=== PATIENT | female | born 1950 | race Caucasian/White ===

== ENCOUNTER → 2022-11-21 09:32 | Outpatient (CLI) | payer MEDICARE, SELFPAY ==
--- NOTE | ~2022-11-21 | MR_ITS ---
MRI of the left shoulder Technique: Axial proton-density fat-sat images, coronal proton density fat-sat and T2 fat-sat images, and sagittal T1-weighted and T2 fat-sat images were acquired. Clinical History: Pain Findings: There is [id number]-gz-[id number] AC joint degenerative change. Small subacromial spur noted. Corac oclavicular, coracoacromial, and coracohumeral ligaments appear intact. There are complete, full-thickness tears involving the entirety of the supraspinatus and infraspinatu s tendons, which are retracted to the level of the glenohumeral joint. Fluid-filled gap measures appr oximately 4.2 x 4.4 cm in extent. There is severe subscapularis tendinosis, without definite partial or full-thickness tear. There is severe tendinosis of the intra-articular biceps tendon, without evid ence of rupture. Humeral head is high riding. Inferior glenohumeral ligament is intact. There is mild chondromalacia o f the glenohumeral joint. There is small to moderate glenohumeral joint effusion with fluid passing t hrough the rotator cuff defect into the subacromial/subdeltoid bursa. There is fluid distention of th e subcoracoid bursa. Questionable minimal fatty atrophy of the supraspinatus and infraspinatus muscle bellies. Probable degenerative tearing of the posterior labrum. Impression: Complete, full-thickness tears of the supraspinatus and infraspinatus tendons, with large fluid-fille d gap and retraction, as detailed above. Questionable minimal fatty atrophy/infiltration of the supra spinatus and infraspinatus muscle bellies. High riding humeral head. Probable degenerative tearing of the posterior labrum. Severe tendinosis of the subscapularis tendon and intra-articular portion of the long head biceps ten don. Reviewed, dictated and finalized at location M. [facility] Impression: Complete, full-thickness tears of the supraspinatus and infraspinatus tendons, with large fluid-filled gap and retraction, as detailed above. Questionable min imal fatty atrophy/infiltration of the supraspinatus and infraspinatus muscle b deny. High riding humeral head. Probable degenerative tearing of the posterior labrum. Severe tendinosis of the subscapularis tendon and intra-articular portion of th e long head biceps tendon.
== END ==
PROVIDERS: PCP Internal Medicine; Visit Provider Orthopaedic Surgery
DX: S43.492A Other sprain of left shoulder joint, initial encounter (principal); X58.XXXA Exposure to other specified factors, initial encounter
CPT/HCPCS: 73221

== ENCOUNTER 2023-01-30 09:40 | Outpatient (CLI) | payer MEDICARE, SELFPAY ==
--- NOTE | 2023-01-30 10:27 | ECG_ITS ---
Measurements Intervals [place] Rate: 92 P: 30 WY: 188 QRS: -8 QRSD: 95 T: 1 QT: 357 QTc: 444 Interpretive Statements SINUS RHYTHM BORDERLINE AV CONDUCTION DELAY ANTERIOR INFARCT, AGE INDETERMINATE INFERIOR INFARCT, AGE INDETERMINATE ABNORMAL ECG COMPARED TO ECG 12/22/2018 13:39:25 NO SIGNIFICANT CHANGES Electronically Signed On 01-30-2023 10:50:54 CDT by Vance Jansen D.O.
[2023-01-30 11:01] LABS: Basophils Percent Auto 0.6 % (0.2-1.2); Eosinophils Absolute Auto 0.4 K/mm3 (0-0.3); Eosinophils Percent Auto 5.9 % (0-4.4); Hematocrit 41.2 % (37.0-47.0); Hemoglobin 14.2 g/dL (12.0-15.0); Immature Granulocyte Absolute 0.01 K/mm3 (0.00-0.031); Immature Granulocyte Percent A 0.2 % (0-0.5); Lymphocytes Absolute Auto 2.62 K/mm3 (0.9-3.2); Lymphocytes Percent Auto 40.9 % (18.3-44.2); Mean Corpuscular HGB Conc 34.5 g/dl (32-36); Mean Corpuscular Hemoglobin 35.2 pg (26-34); Mean Corpuscular Volume 102.2 fl (80-100); Mean Platelet Volume 9.5 fl (7.4-10.4); Monocytes Absolute Auto 0.4 K/mm3 (0.1-0.6); Monocytes Percent Auto 5.5 % (2.6-8.5); Neutrophils Percent Auto 46.9 % (45.5-73.1); Platelet Count Result 258 k/mm3 (150-375); Red Blood Count 4.03 M/mm3 (4.2-5.4); Red Cell Distribution Width 12.7 % (11.5-14.5); White Blood Count 6.4 K/mm3 (4.5-10.0)
[2023-01-30 11:09] LABS: Anion Gap 7 mmol/L (8-16); Blood Urea Nitrogen 19 mg/dL (7-17); Calcium 10.7 mg/dL (8.4-10.2); Carbon Dioxide 33 mmol/L (22-30); Chloride 99 mmol/L (98-107); Estimated Glomerular Filt Rate > 60; Glucose 177 mg/dL (65-110); Sodium 139 mmol/L (137-145)
== END 2023-01-30 09:41 | disposition home or self-care (01) ==
PROVIDERS: Anesthesiology; PCP Internal Medicine; Visit Provider Orthopaedic Surgery
DX: E11.9 Type 2 diabetes mellitus without complications (principal); M12.812 Other specific arthropathies, not elsewhere classified, left shoulder; M75.102 Unspecified rotator cuff tear or rupture of left shoulder, not specified as traumatic; Z51.81 Encounter for therapeutic drug level monitoring; I45.9 Conduction disorder, unspecified
CPT/HCPCS: 36415; 80048; 85025; 87081; 93005

== ENCOUNTER 2023-02-28 00:06 | Day surgery (SDC) | payer MEDICARE, SELFPAY ==
--- NOTE | 2023-01-30 09:32 | PC.NURSE ---
PRE-OP INSTRUCTIONS, PLEASE READ CAREFULLY Report to the Outpatient Waiting Room, entrance under the green pavilion located off [facility], at time _0600_ on date _02/28/23_. Planned Procedure Time: _0730_. PACK A SMALL OVERNIGHT BAG AND LEAVE IN THE CAR Time changes happen often and if your time is changed the preop area will call you the afternoon before. - You and your visitor will be asked to self-screen and do not enter if you have any COVID symptoms. - A mask is optional within the hospital at this time. -VISITING HOURS 8AM-8PM Patients may have clear liquids (water, carbonated beverages, clear teas, apple juice) until 3 hours prior to surgery (0430 AM) with a maximum of 20 ounces. - No food from midnight until time of surgery Take the following medications with a SIP of water the morning of surgery: _LEVOTHYROXINE, PRAMIPEXOLE, VENLAFAXINE_ DO NOT STOP ANY OF YOUR OTHER PRESCRIPTION MEDICATIONS PRIOR TO SURGERY ?EXCEPT THE FOLLOWING Medications to discontinue per DR. JAMA - _ASPIRIN 7 DAYS PRIOR TO SURGERY, Date to take last dose 02/20/23_ Medications to discontinue per ANESTHESIA - _FOCUS FACTOR, BIO-FLEX 3 DAYS PRIOR TO SURGERY, Date to take last dose 02/24/23_ Please no make-up, nail yi, hairspray, perfume, deodorant, or body powder the day of surgery. No jewelry (including any body piercings) or valuables the day of surgery, leave them at home. Please take a shower or bath the night before, or the morning of, surgery with an antibacterial soap. Wear comfortable, loose fitting clothing. - Jewelry must be removed prior to entering the operating room. Rings and piercings that are not removed may be cut off. - The hospital will not accept responsibility for valuables. - Please leave all valuables, including medications, at home the day of surgery. If you are going home after surgery, a licensed shuttle driver must drive you home. - NO public transportation without another adult if you receive anesthesia. - We recommend that an adult stay with you for 24 hours following discharge. - We also recommend that you do not drive, make important decision, drink alcoholic beverages, or take any drugs that were not prescribed by your health care provider for at least 24 hours after your discharge time. Follow any additional instructions given to you from your surgeon. If you or anyone in your household have experienced Covid symptoms in the past week, please notify your surgeon or the nurse liaison at the phone number below for possible testing. Instructions given to _PATIENT_and asked if any additional questions and then verbalized understanding. Patient advised to call surgeon office or pre surgery nurse liaison [phone] if any additional questions.
[2023-01-30 10:07] VITALS: BP 130/66; PULSE 96; RESP 18; TEMP 36.9; O2SAT 96; BMI 38.9
--- NOTE | 2023-02-27 12:50 | WPDANESEPPF ---
Anes - Initial Pre Proc Eval Procedure: Operation Date: 02/28/23 07:30 Proposed Procedures p Left Reverse Total Shoulder Arthroplasty - Cody Dhillon MD Date/Time: 02/27/23 12:50 Surgeon: Cody Dhillon MD Pre Op Diagnosis: Lt Shoulder Rot Cuff Arthropathy Patient Data Age: 72 Gender: F Height: 1.5 m Weight: 87.4 kg Last Vital Signs Temp 36.9 C 01/30/23 10:07 Pulse 96 01/30/23 10:07 Resp 18 01/30/23 10:07 BP 130/66 01/30/23 10:07 Pulse Ox 96 01/30/23 10:07 O2 Del Method Room Air 01/30/23 10:07 Allergies Allergy/AdvReac Type Severity Reaction Status Date / Time erythromycin base Allergy Intermediate RASH Verified 02/28/23 06:10 Macrolide Antibiotics Allergy Intermediate RASH Verified 02/28/23 06:10 clarithromycin Allergy Unknown Hives Verified 02/28/23 06:10 Home Medications Medication Instructions Recorded Confirmed Type allopurinol 300 mg tablet 300 mg PO DAILY 10/22/19 02/28/23 History aspirin 81 mg tablet,delayed 81 mg PO HS 10/22/19 02/28/23 History release atorvastatin 10 mg tablet 10 mg PO DAILY 10/22/19 02/28/23 History celecoxib 200 mg capsule (Celebrex) 200 mg PO DAILY 10/22/19 02/28/23 History ergocalciferol (vitamin D2) 1,250 1,250 mcg PO WEEKLY 10/22/19 02/28/23 History mcg (50,000 unit) capsule (Vitamin D2) esomeprazole magnesium 40 mg 40 mg PO DAILY 10/22/19 02/28/23 History capsule,delayed release (Nexium) mirabegron 25 mg tablet,extended 25 mg PO HS 10/22/19 02/28/23 History release 24 hr (Myrbetriq) pramipexole 1.5 mg tablet (Mirapex) 1.5 mg PO BID 10/22/19 02/28/23 History valacyclovir 500 mg tablet 500 mg PO DAILY 10/22/19 02/28/23 History venlafaxine 150 mg 150 mg PO DAILY 10/22/19 02/28/23 History capsule,extended release 24 hr glipizide 5 mg tablet 5 mg PO DAILY 10/13/22 06/08/23 History metformin 1,000 mg tablet,extended 1,000 mg PO BID 07/05/22 02/28/23 History release 24hr modafinil 200 mg tablet 400 mg PO HS 12/03/22 02/28/23 History Focus Factor 1 tab-cap QA 01/30/23 02/28/23 History furosemide 40 mg tablet 40 mg QAM 01/30/23 02/28/23 History glucosamine-chondroitin 250 mg-200 2 tablet PO BID 01/30/23 02/28/23 History mg tablet (Osteo Bi-Flex) levothyroxine 88 mcg tablet 88 mcg QAM 01/30/23 02/28/23 History magnesium 200 mg tablet 400 mg PO HS 01/30/23 02/28/23 History metoprolol succinate 25 mg 25 mg PO HS 01/30/23 02/28/23 History tablet,extended release 24 hr spironolactone 25 mg tablet 25 mg BID 01/30/23 02/28/23 History mupirocin 2 % topical ointment 1 applic topical TID #15 grams 02/04/23 02/28/23 Rx Patient hx anesthesia problems: none Family hx anesthesia problems: none Results Review: All pre-operative results and documents have been reviewed as part of the pre-operative evaluation. [facility] Past Medical History Medical History (Updated 02/28/23 @ 07:07 by Bobby Ortiz MD) Anxiety Diabetes Hyperlipidemia Hypertension Hypothyroidism Obesity MAGEN (obstructive sleep apnea) Osteoarthritis Paroxysmal A-fib Surgical History Surgical History History of cholecystectomy (~2007) History of hysterectomy (~1995) History of knee surgery (~2009) History of knee surgery (~2013) History of reverse total replacement of right shoulder joint (~01/13/19) History of tubal ligation (~1987) Family History Family History Mother Diabetes mellitus Family history of malignant neoplasm Father Family history of congenital heart disease Social History Social History Smoking status: Never smoker Second hand tobacco smoke exposure: No Alcohol intake: never Substance use: never Substance use type: does not use Lack of Transportation: No Lack of Food: Never True Current Housing: I Have Housing Concerned About Future
--- NOTE | 2023-02-27 12:55 | WPDANESPNB ---
Anes - Peripheral Nerve Block Date/Time: 02/27/23 12:55 I have discussed with the patient/family/POA the placement of a peripheral nerve block for post-operative pain management, including associated risks, benefits, complications, and side effects. Alternative methods of post-operative analgesia were detailed. Questions were solicited and answers provided to the satisfaction of the patient/family/POA. Time-Out: A pre-procedural Time-Out was completed immediately before starting the procedure and confirmed: Patient Identification, Site, Procedure, Patient Position and the Availability of Requisite Equipment. Clinical Indications: Acute post-operative pain management requested by the operative surgeon. Nerve Block Insertion Note Anes-nerve block: supraclavicular left Patient position: supine Skin prep: chlorhexidine Needle: 22 gauge, stimulating, insulated echogenic needle. Needle length: 80 mm Technique: ultrasound (in plane) Injectate: bupivacaine 0.25% with epi 5 mcg/ml (20cc) Observations: tolerated well Complications: none Procedure start time:: 720 Procedure end time:: 725
[2023-02-28] VITALS (16 sets, daily range): BP systolic 95–154; BP diastolic 53–83; PULSE 70–92; RESP 14–20; TEMP 35.5–36.7; O2SAT 93–98
--- NOTE | ~2023-02-28 | XR_ITS ---
EXAMINATION: XR shoulder LT min 2V DATE: 02/28/2023 10:43 INDICATION: Left shoulder arthroplasty. Postop. TECHNIQUE: 2 views of left shoulder were obtained. COMPARISON: Left shoulder radiographs 09/03/2022 FINDINGS: There is a reverse [id number] total left shoulder arthroplasty in near-anatomic alignm ent. No fracture. There is mild osteoarthritis of acromioclavicular joint. A surgical drain overlies left shoulder. There are airspace opacities in left mid and lower lung zones. IMPRESSION: 1. Total left shoulder arthroplasty in near-anatomic alignment. 2. Airspace opacities in left mid and lower lung zones, consistent with atelectasis versus pneumonia. Reviewed, dictated and finalized at location A. IMPRESSION: 1. Total left shoulder arthroplasty in near-anatomic alignment. 2. Airspace opacities in left mid and lower lung zones, consistent with atelect asis versus pneumonia.
[2023-02-28] MEDS: LACTATED RINGERS 1,000 ML 30 ML IV CONT ×2 (06:19→10:18)
[2023-02-28 06:34] LABS: Glucose Point of Care 154 mg/dl (65-105)
[2023-02-28] MEDS: TRANEXAMIC ACID 1,000MG/ISO100 1,000 MG/100 ML BAG 200 MG IVPB (07:01)
[2023-02-28] MEDS: ACETAMINOPHEN 500 MG TABLET 1000 MG PO (07:01)
--- NOTE | 2023-02-28 07:11 | WPDHPUPDATE1 ---
History and Physical Update Update Date/Time: 02/28/23 07:11 History and Physical has been reviewed, including an updated exam of the patient. There are NO changes in the patient's condition. Risks, benefits, and alternatives have been discussed and questions answered. Patient agrees to proceed with procedure.
[2023-02-28] MEDS: ceFAZolin 2 GM/D5W 50 ML 2 GM/50 ML BAG IVPB (07:59)
[2023-02-28] MEDS: VANCOMYCIN HCL 1,000 MG VIAL 1000 MG TOPICAL (09:25)
--- NOTE | 2023-02-28 10:13 | W.PM.PROC2 ---
Procedure Note - Detailed Date of Procedure 02/28/23 Pre-op Diagnosis Lt Shoulder Rot Cuff Arthropathy Post-op Diagnosis Same Procedure Performed Reverse total shoulder arthroplasty, left Surgeon Cody Dhillon MD Anesthesia General and Regional (Interscalene block.) Findings Massive rotator cuff tear. Small stature. No glenoid wear. Description of Procedure The patient was given an interscalene block in the preoperative area. Preoperative antibiotics were given. The patient was transferred to the operating room and a general anesthetic was administered. The beach chair position was used at 45 degrees. All bony prominences were padded. The head was carefully stabilized on the [facility] apple packing header. A sterile prep and drape was performed in the usual manner with ChloraPrep. A longitudinal incision was created at the anterior shoulder just lateral to the deltopectoral interval. Hydrogen peroxide was placed on the incision and then rinsed after one minute. Careful dissection was performed to expose the interval and protect the cephalic vein. The vein was retracted medially. The upper border of the pectoralis was released. Anterior circumflex vessel branches were suture ligated. The biceps was tenodesed. A subscapularis tenotomy was performed. The inferior capsule was released, exposing the humeral head. Osteophytes were removed. Care was taken to stay on bone to protect the axillary nerve. The anatomic head cut was taken with the oscillating saw. The guide pin was placed, central drilling performed, and the broach trial inserted. The neck anteversion and inclination were carefully assessed. The cut protector was placed, and attention was turned to the glenoid. Retractors were placed. Releases were carried out for exposure. The subscapularis was mobilized, the inferior capsule and long head of triceps released, and the superior and middle glenohumeral ligaments released as well. Labral tissue was resected as needed. The sizing template was used to assess the baseplate position low on the glenoid. A guide pin was placed. Minimal reaming was used to accomplish a flat surface without violating the subchondral bone. Version was corrected according to preoperative templating. The boss was drilled, and the real component was impacted into position. Supplemental locking screws were placed centrally, superiorly, and inferiorly. The glenosphere was impacted into the taper. The proximal humerus was reamed for the inset component. The humeral components were trialed. The real humeral stem, tray, and insert were impacted into position. The shoulder was copiously irrigated periodically with pulsatile lavage. The shoulder was reduced and stability confirmed. The subscapularis did not reduce to the tuberosity. 1 gram of Vancomycin powder was placed in the joint. The biceps tenodesis was incorporated with the pectoralis tendon repair. A deep drain was placed. The deltopectoral space was reapproximated with number 1 Vicryl. The remaining tissue was closed with 0 Quill and 2-0 Quill running suture and steri-strips. A sterile silver occlusive dressing and shoulder immobilizer were placed. The patient was transferred to the recovery room. Periarticular pain injection performed. Implants Shoulder Innovations reverse TSA size 0 stem. +0 polyethylene insert. Standard 10mm baseplate. 33+6 mm glenosphere. Estimated Blood Loss 150 Drains Yes (medium hemovac) Pathology None sent Complications No immediate complications Condition Stable Disposition PACU [facility] Billing Surgery - Charge Forward: Surgery Billing
--- NOTE | 2023-02-28 10:20 | PM.DS ---
DS: Admitting Diagnosis Discharge Date 03/01/2023 Admitting Diagnosis rotator cuff arthropathy, left shoulder. DS: Discharge Diagnosis Discharge Diagnosis (1) Status post reverse total arthroplasty of left shoulder: Code(s): Z96.612 - Presence of left artificial shoulder joint Status: Acute (2) Orthopedic aftercare: Code(s): Z47.89 - Encounter for other orthopedic aftercare Status: Acute DS: Summary Hospital Course Reason for hospitalization: Total shoulder arthroplasty. Hospital Course: Tolerated surgery well. Progressed appropriately with therapy. Status at Discharge Functional status at discharge: independent ambulation Overall status at discharge: patient is progressing back to baseline Time Spent with Patient Time attestation: Total time spent providing and/or coordinating discharge services: Exam Const: General: no acute distress Resp: Effort & Inspection: normal respiratory effort Skin: Other: Wound healing well. Mepilex dressing intact. No hematoma or drainage. Sling applied appropriately. Deltoid muscle fires. Axillary nerve sensation intact. Good freight broker agent strength. No edema. radial pulse palpable. Neuro: Motor exam (neuro): 5/5 motor strength present throughout Sensory Exam: normal sensation Psych: Mental Status: mental status grossly normal Speech and movement: Normal speech and movement present DS: Data Data Completed and Pending Labs on day of discharge: Labs from last 24 hours 02/28/23 02/28/23 06:30 06:29 POC Capillary Glucose 154 H Blood Type A Negative Antibody Screen Negative Discharge Plan Discharge Patient Disposition: Home, Self-Care Discharge Instructions: See instruction sheet. Stand Alone Forms: General Discharge Instructions Follow-up/Referrals: Cody Dhillon MD [Physician] - Discharge Medications: New oxycodone-acetaminophen 5-325 mg tablet 1 - 2 tablet PO Q4-6H MDD 6 tablets PRN (Reason: pain) Qty: 30 0RF Continued allopurinol 300 mg tablet 300 mg PO DAILY aspirin 81 mg tablet,delayed release (DR/EC) 81 mg PO HS atorvastatin 10 mg tablet 10 mg PO DAILY celecoxib [Celebrex] 200 mg capsule 200 mg PO DAILY Patient Comments: HS pramipexole [Mirapex] 1.5 mg tablet 1.5 mg PO BID Myrbetriq 25 mg tablet extended release 24 hr 25 mg PO HS esomeprazole magnesium [Nexium] 40 mg capsule,delayed release(DR/EC) 40 mg PO DAILY valacyclovir 500 mg tablet 500 mg PO DAILY venlafaxine 150 mg capsule,extended release 24hr 150 mg PO DAILY ergocalciferol (vitamin D2) [Vitamin D2] 1,250 mcg (50,000 unit) capsule 1,250 mcg PO WEEKLY Rx Instructions: ON SATURDAY PM metformin 1,000 mg tablet extended release 24 hr 1,000 mg PO BID glipizide 5 mg tablet 5 mg PO DAILY modafinil 200 mg tablet 400 mg PO DAILY Rx Instructions: 0800, 1430 furosemide 40 mg tablet 40 mg QAM spironolactone 25 mg tablet 25 mg BID Rx Instructions: AM &1400 levothyroxine 88 mcg tablet 88 mcg QAM metoprolol succinate 25 mg tablet extended release 24 hr 25 mg PO HS magnesium 200 mg Tablet 400 mg PO HS glucosamine-chondroitin [Osteo Bi-Flex] 250-200 mg Tablet 2 tablet PO BID Rx Instructions: give after food/meal Focus Factor 1 tab-cap QAM
[2023-02-28 10:27] LABS: Glucose Point of Care 157 mg/dl (65-105)
--- NOTE | 2023-02-28 12:09 | ADMGEN ---
This patient, Joellen Colmenares, was admitted to [facility] Surg Room 326-01. Patient/family oriented to hospital policies and general routines including ID bracelet, bed and alarms, visiting hours, pain management, procedures, bathroom and other care routines, personal items, smoking policy, room service/diet, and visiting hours. Information on how to activate the Rapid Response Team has been discussed. Patient/Family are encouraged to report perceived risks to care and to ask questions if they do not understand what they are told or what they should do.
[2023-02-28] MEDS: SODIUM CHLORIDE 0.9% IV 1,000 ML 125 ML IV CONT (12:29)
[2023-02-28 12:30] LABS: Glucose Point of Care 167 mg/dl (65-105)
--- NOTE | 2023-02-28 13:15 | PM.IMCN ---
Assessment and Plan Assessment and plan (1) Status post reverse total arthroplasty of left shoulder: Code(s): Z96.612 - Presence of left artificial shoulder joint Status: Acute Assessment and Plan: Postop care per Ortho DVT prophylaxis per Ortho. The patient has SPARKLE hose on. PT OT per orthopedic doctor analgesics per orthopedic doctor, she is on oxycodone and Tylenol her Celebrex was continued. Left shoulder drain is intact. (2) Diabetes: Code(s): E11.9 - Type 2 diabetes mellitus without complications Status: Acute Assessment and Plan: Accu-Cheks AC and HS with sliding scale insulin check A1c. Her glipizide was continue and her metformin was continued per Orthopedic. (3) Restless legs syndrome: Code(s): G25.81 - Restless legs syndrome Status: Acute Assessment and Plan: continue with Pramipexole (4) Gout: Code(s): M10.9 - Gout, unspecified Status: Acute Assessment and Plan: continue with allopurinol (5) Anxiety: Code(s): F41.9 - Anxiety disorder, unspecified Status: Acute Assessment and Plan: continue with venlafaxine (6) Hypothyroidism: Code(s): E03.9 - Hypothyroidism, unspecified Status: Acute Assessment and Plan: continue with levothyroxine and check thyroid level (7) MAGEN (obstructive sleep apnea): Code(s): G47.33 - Obstructive sleep apnea (adult) (pediatric) Status: Acute Assessment and Plan: continue with her home settings for CPAP (8) Hyperlipidemia: Code(s): E78.5 - Hyperlipidemia, unspecified Status: Acute Assessment and Plan: continue with atorvastatin (9) Hypertension: Code(s): I10 - Essential (primary) hypertension Status: Acute Assessment and Plan: continue with Lasix, metoprolol, spironolactone Plan thank you for allowing us to consult on this patient we will continue to comanage this patient alongside you. In the event he have any questions or concerns please contact the hospitalist group. HPI Data of Consult Consult date: 02/28/23 Requesting Physician: Cody Dhillon MD Primary Care Provider: Wilmar Flores, Consult Narrative Narrative: Joellen Colmenares is a 72 year old female WHO HAD A SEVERE FLARE-UP OF LEFT SHOULDER PAIN. THE PATIENT WAS PUTTING UP HER KJ TREE REACHING WHEN SHE FELT A SHARP PAIN. THIS PAIN BECAME MORE CONSTANT. PATIENT'S PAIN WAS SEVERE AT NIGHT. THE PATIENT TRIED INJECTIONS SEVERAL MONTHS AGO. THE PATIENT CONTINUED TO HAVE PAIN ON AND OFF FOR SEVERAL MONTHS. SHE WAS HAVING DIFFICULTY CARING THINGS AND SHE WAS UNABLE TO LAY ON HER LEFT SIDE AT NIGHT. SHE DOES HAVE A HISTORY OF HAVING A RIGHT REVERSE TOTAL SHOULDER IN 2019 WAS SATISFACTORY RESULTS. Her MRI showed massive rotator cuff tear. She has some degenerative changes that are mild. The patient was having persistent pain daily with activity and at night despite physical therapy and injections. The patient underwent a left total reverse shoulder arthroplasty per Dr. Dhillon. Please see operative report. The patient is up sitting in the chair without any complaints. Her left arm is in a sling and she is moving her fingers without difficulty. The patient was admitted to the hospital via orthopedic physician and the hospitalist group was asked to consult on the date of service of 02/28/2023. Review of Systems Review of Systems: All systems reviewed & are unremarkable except as noted in HPI and below Constitutional: Constitutional: Reports as per HPI and Reports no additional constitutional complaints Eyes: Eyes: Reports as per HPI and Reports no additional eye complaints ENT: Reports system reviewed and no additional complaints, except as documented and Reports Normal hearing present Cardiovascular: Cardiovascular: Reports no additional cardiovascular complaints Respiratory: Respirato
[2023-02-28] MEDS: metFORMIN HCL XR 500 MG TAB.SR.24H 1000 MG PO (16:33)
[2023-02-28] MEDS: PRAMIPEXOLE 0.5 MG TABLET 1.5 MG PO (16:34)
[2023-02-28] MEDS: SENNA/DOCUSATE SODIUM TABLET 2 TAB PO (16:34)
[2023-02-28] MEDS: SPIRONOLACTONE 25 MG TABLET BY MOUTH (16:35)
[2023-02-28] MEDS: ceFAZolin 1 GM/NS 50 ML 1 GM/50 ML BAG IVPB (16:35)
[2023-02-28 16:55] LABS: Glucose Point of Care 160 mg/dl (65-105)
[2023-02-28] MEDS: oxyCODONE HCL (*CRX) 5 MG TAB IR PO (18:50)
[2023-02-28] MEDS: METOPROLOL SUCCINATE EXT REL 25 MG TABCR PO (20:29)
[2023-02-28] MEDS: ASPIRIN 81 MG ENTERIC TABLET PO (20:29)
[2023-02-28] MEDS: MAGNESIUM OXIDE 400 MG TABLET PO (20:29)
[2023-02-28] MEDS: ERGOCALCIFEROL 50,000 UNITS CAPSULE 50000 UNITS PO (20:29)
[2023-02-28] MEDS: MIRABEGRON 25 MG ER TABLET PO (20:29)
[2023-02-28 21:18] LABS: Glucose Point of Care 171 mg/dl (65-105)
[2023-03-01] MEDS: ceFAZolin 1 GM/NS 50 ML 1 GM/50 ML BAG IVPB ×2 (00:17→08:19)
[2023-03-01] MEDS: oxyCODONE HCL (*CRX) 5 MG TAB IR 10 MG PO ×2 (00:26→08:21)
[2023-03-01 05:35] VITALS: BP 141/92; PULSE 109; RESP 18; TEMP 35.7; O2SAT 92
[2023-03-01] MEDS: LEVOTHYROXINE SODIUM 88 MCG TABLET BY MOUTH (05:41)
[2023-03-01] MEDS: oxyCODONE HCL (*CRX) 5 MG TAB IR PO ×2 (05:41→11:05)
[2023-03-01 06:15] LABS: Basophils Absolute Auto 0.1 K/mm3 (0.0-0.1); Basophils Percent Auto 0.5 % (0.2-1.2); Eosinophils Absolute Auto 0.4 K/mm3 (0-0.3); Eosinophils Percent Auto 3.7 % (0-4.4); Hematocrit 44.5 % (37.0-47.0); Hemoglobin 15.1 g/dL (12.0-15.0); Immature Granulocyte Absolute 0.04 K/mm3 (0.00-0.031); Immature Granulocyte Percent A 0.4 % (0-0.5); Lymphocytes Absolute Auto 2.26 K/mm3 (0.9-3.2); Lymphocytes Percent Auto 20.1 % (18.3-44.2); Mean Corpuscular HGB Conc 33.9 g/dl (32-36); Mean Corpuscular Hemoglobin 35.6 pg (26-34); Mean Platelet Volume 9.5 fl (7.4-10.4); Monocytes Absolute Auto 0.8 K/mm3 (0.1-0.6); Monocytes Percent Auto 7.2 % (2.6-8.5); Neutrophils Absolute Auto 7.6 K/mm3 (1.3-6.7); Neutrophils Percent Auto 68.1 % (45.5-73.1); Platelet Count Result 252 k/mm3 (150-375); Red Blood Count 4.24 M/mm3 (4.2-5.4); Red Cell Distribution Width 13.3 % (11.5-14.5); White Blood Count 11.2 K/mm3 (4.5-10.0)
[2023-03-01 06:27] LABS: Anion Gap 5 mmol/L (8-16); Blood Urea Nitrogen 14 mg/dL (7-17); Calcium 10.2 mg/dL (8.4-10.2); Carbon Dioxide 28 mmol/L (22-30); Chloride 101 mmol/L (98-107); Estimated Glomerular Filt Rate > 60; Glucose 195 mg/dL (65-110); Potassium 4.5 mmol/L (3.4-5.0); Sodium 134 mmol/L (137-145)
[2023-03-01 07:25] LABS: Glucose Point of Care 190 mg/dl (65-105)
[2023-03-01] MEDS: allopurinoL 300 MG TABLET PO (08:19)
[2023-03-01] MEDS: PRAMIPEXOLE 0.5 MG TABLET 1.5 MG PO (08:21)
[2023-03-01] MEDS: polyethylene glycoL 3350 17 GM POWD.PACK PO (08:21)
[2023-03-01] MEDS: MUPIROCIN 2% OINT 22 GM TUBE 1 APPLIC TOPICAL (08:21)
[2023-03-01] MEDS: metFORMIN HCL XR 500 MG TAB.SR.24H 1000 MG PO (08:21)
[2023-03-01] MEDS: glipiZIDE 5 MG TABLET PO (08:21)
[2023-03-01] MEDS: FUROSEMIDE 40 MG TABLET BY MOUTH (08:22)
[2023-03-01] MEDS: valACYclovir HCL 500 MG TABLET PO (08:22)
[2023-03-01] MEDS: ATORVASTATIN 10 MG TABLET PO (08:22)
[2023-03-01] MEDS: CELECOXIB 200 MG CAPSULE PO (08:22)
[2023-03-01] MEDS: SENNA/DOCUSATE SODIUM TABLET 2 TAB PO (08:22)
[2023-03-01] MEDS: SPIRONOLACTONE 25 MG TABLET BY MOUTH (08:22)
[2023-03-01] MEDS: VENLAFAXINE HCL XR 75 MG CAP.ER.24H 150 MG PO (08:22)
[2023-03-01] MEDS: PANTOPRAZOLE 40 MG TABLET PO (08:23)
[2023-03-01 09:20] VITALS: O2SAT 92
[2023-03-01 09:35] VITALS: BP 119/74; PULSE 117; RESP 18; TEMP 36.6; O2SAT 94
--- NOTE | 2023-03-01 09:36 | WPDANESPN ---
Anes - Prog Note Post-Op Date/Time: 03/01/23 09:36 Cardiovascular status: normal Respiratory status: normal Airway patency: baseline Mental status: baseline Post-Op hydration status: normal Vital Signs: Last Vital Signs Temp 35.7 C L 03/01/23 05:35 Pulse 109 H 03/01/23 05:35 Resp 18 03/01/23 05:35 BP 141/92 H 03/01/23 05:35 Pulse Ox 92 03/01/23 09:20 O2 Del Method Room Air 03/01/23 09:20 O2 Flow Rate 2 02/28/23 11:40 Pain Score (VAS): 0 I/O: Intake & Output 02/28/23 03/01/23 03/01/23 23:59 07:59 15:59 Intake Total 790 1150 240 Output Total 75 Balance 790 1075 240 Laboratory Tests 03/01/23 05:34 03/01/23 05:34 02/28/23 02/28/23 02/28/23 10:23 12:14 16:35 WBC RBC Hgb Hct MCV MCH MCHC RDW Plt Count MPV Immature Gran % (Auto) Neut % (Auto) Lymph % (Auto) [place] % (Auto) Eos % (Auto) Baso % (Auto) Lymph # (Auto) [place] # (Auto) Eos # (Auto) Baso # (Auto) Abs Immat Gran (auto) Absolute Neuts (auto) Absolute Nucleated RBC Nucleated RBC % Sodium Potassium Chloride Carbon Dioxide Anion Gap BUN Creatinine Estim Creat Clear Calc Estimated GFR Glucose POC Capillary Glucose 157 H 167 H 160 H Hemoglobin A1c Calcium 02/28/23 03/01/23 03/01/23 20:11 05:34 07:22 WBC 11.2 H RBC 4.24 Hgb 15.1 H Hct 44.5 MCV 105.0 H MCH 35.6 H MCHC 33.9 RDW 13.3 Plt Count 252 MPV 9.5 Immature Gran % (Auto) 0.4 Neut % (Auto) 68.1 Lymph % (Auto) 20.1 [place] % (Auto) 7.2 Eos % (Auto) 3.7 Baso % (Auto) 0.5 Lymph # (Auto) 2.26 [place] # (Auto) 0.8 H Eos # (Auto) 0.4 H Baso # (Auto) 0.1 Abs Immat Gran (auto) 0.04 H Absolute Neuts (auto) 7.6 H Absolute Nucleated RBC 0.0 Nucleated RBC % 0.0 Sodium 134 L Potassium 4.5 Chloride 101 Carbon Dioxide 28 Anion Gap 5 L BUN 14 D Creatinine 0.70 Estim Creat Clear Calc Not Reportable Estimated GFR > 60 Glucose 195 H POC Capillary Glucose 171 H 190 H Hemoglobin A1c 7.0 H Calcium 10.2 Post-procedural complaints: none Patient Feedback: Patient satisfied with anesthetic care.
[2023-03-01 11:33] LABS: Glucose Point of Care 232 mg/dl (65-105)
[2023-03-01] MEDS: modafiniL (*CRX) 200 MG TABLET 400 MG PO (13:13)
[2023-03-01] MEDS: INSULIN ASPART (*BKC) 100 UNITS/ML SUB-Q (13:16)
[2023-03-01 13:35] VITALS: BP 141/79; PULSE 106; RESP 18; TEMP 36.4; O2SAT 95
--- NOTE | 2023-03-01 13:58 | PM.IMPN ---
Progress Note: A&P Assessment and Plan (1) Status post reverse total arthroplasty of left shoulder: Code(s): Z96.612 - Presence of left artificial shoulder joint Status: Acute Assessment and Plan: Patient appears to have tolerated the procedure quite well. Pain is well controlled. She is up ambulating as expected. Continue routine postoperative care. DVT prophylaxis per Ortho. The patient has ARCHEI hose on. Continue current analgesics. (2) Diabetes: Code(s): E11.9 - Type 2 diabetes mellitus without complications Status: Acute Assessment and Plan: A1c 7.0. The patient's blood glucose was reviewed on 03/01 Glucose poorly controlled. Metformin and Glipizide resumed. Probably stress response. Continue AccuCheks covering with sliding scale. Hypoglycemia protocol available as needed. Continue current medications. Advance treatment if she remains hospitalized today. (3) Restless legs syndrome: Code(s): G25.81 - Restless legs syndrome Status: Acute Assessment and Plan: Stable. Continue Pramipexole (4) Hypertension: Code(s): I10 - Essential (primary) hypertension Status: Acute Assessment and Plan: Patient's blood pressure was reviewed on 03/01 Blood pressure was low yesterday but better today. Will continue current medications. (5) Anxiety: Code(s): F41.9 - Anxiety disorder, unspecified Status: Acute Assessment and Plan: Mood stable. Continue venlafaxine (6) MAGEN (obstructive sleep apnea): Code(s): G47.33 - Obstructive sleep apnea (adult) (pediatric) Status: Acute Assessment and Plan: She is compliant with therapy. Continue with her home settings for CPAP (7) Hyperlipidemia: Code(s): E78.5 - Hyperlipidemia, unspecified Status: Acute Assessment and Plan: continue with atorvastatin (8) Hypothyroidism: Code(s): E03.9 - Hypothyroidism, unspecified Status: Acute Assessment and Plan: No TSH listed in the chart. Will defer to the primary care provider. Continue levothyroxine. (9) Gout: Code(s): M10.9 - Gout, unspecified Status: Acute Assessment and Plan: No evidence of acute gouty flare. Continue with allopurinol Subjective Date/time seen: 03/01/23 13:58 Interval history: 72yo female with pAFib, HTN and MAGEN here for post-op observation from a reverse left total shoulder arthroplasty. Patient feels well. Pain is reasonably well controlled at 3/10. She has been out of bed sitting in the chair and walking with therapy down the [place]. No chest pain or shortness of breath. She is requesting discharge. Exam Narrative: AF 98.0 119/74 117 18 94% ra Gen - NARD Chest - lungs clear anteriorly, nml RR CV - RRR S1/S2 Abd - Soft, NT/ND, Positive BS Ext - No pedal edema. Archie hose in place. Left shoulder dressing clean and dry. Drain in place Neuro - Alert and oriented. Nonfocal exam. Psych - Nml mood and affect Skin - Warm and dry Objective Data Vital Signs Vital Signs: Vital Signs - 24 hr 02/28/23 17:50 02/28/23 20:29 02/28/23 20:00 Temperature 96.8 F L Pulse Rate 70 73 Respiratory Rate 18 Blood Pressure 110/54 L Pulse Oximetry 98 Oxygen Delivery Room Air 02/28/23 23:29 02/28/23 21:35 03/01/23 05:35 Temperature 96 F L 96.2 F L Pulse Rate 87 109 H Respiratory Rate 19 14 18 Blood Pressure 154/83 H 141/92 H Pulse Oximetry 93 92 Oxygen Delivery Autopap 03/01/23 09:20 03/01/23 09:35 03/01/23 08:15 Temperature 98 F Pulse Rate 117 H Respiratory Rate 18 Blood Pressure 119/74 Pulse Oximetry 92 94 Oxygen Delivery Room Air Room Air Intake/Output Intake/Output: Intake & Output 02/26/23 02/27/23 02/28/23 03/01/23 23:59 23:59 23:59 23:59 Intake Total 1330 2029 Output Total 75 Balance 1330 1955 Meds/Results Medications: Active Medicatio
--- NOTE | 2023-03-01 16:01 | PM.PNORT ---
Progress Note: A&P Assessment and Plan (1) Status post reverse total arthroplasty of left shoulder: Code(s): Z96.612 - Presence of left artificial shoulder joint Status: Acute Plan Postoperative day 1 status post reverse total shoulder arthroplasty. Mild pain. Dressing intact. Drain output modest. No hematoma. Neurovascular status intact. Fires deltoid. Good welder fitter helper strength. Light touch sensation intact distally. Satisfactory postop. Remove the drain. Change dressing. Discharge home. Questions answered. Subjective Subjective Date/Time Seen: 03/01/23 16:01 Objective Data Vital Signs Vital Signs: Vital Signs - 24 hr 02/28/23 17:50 02/28/23 20:29 02/28/23 20:00 Temperature 36.0 C L Pulse Rate 70 73 Respiratory Rate 18 Blood Pressure 110/54 L Pulse Oximetry 98 Oxygen Delivery Room Air 02/28/23 23:29 02/28/23 21:35 03/01/23 05:35 Temperature 35.5 C L 35.7 C L Pulse Rate 87 109 H Respiratory Rate 19 14 18 Blood Pressure 154/83 H 141/92 H Pulse Oximetry 93 92 Oxygen Delivery Autopap 03/01/23 09:20 03/01/23 09:35 03/01/23 08:15 Temperature 36.6 C Pulse Rate 117 H Respiratory Rate 18 Blood Pressure 119/74 Pulse Oximetry 92 94 Oxygen Delivery Room Air Room Air 03/01/23 13:35 Temperature 36.4 C Pulse Rate 106 H Respiratory Rate 18 Blood Pressure 141/79 H Pulse Oximetry 95 Oxygen Delivery Intake/Output Intake/Output: Intake & Output 02/26/23 02/27/23 02/28/23 03/01/23 23:59 23:59 23:59 23:59 Intake Total 1330 2080 Output Total 75 Balance 1330 2004 Meds/Results Medications: Active Medications Generic Name Dose Route Start Last Admin Trade Name Freq PRN Reason Stop Dose Admin Acetaminophen 1,000 mg 02/28/23 11:50 Acetaminophen 500 Mg Tablet PO Q6H PRN Pain Rated 1-3 Allopurinol 300 mg 03/01/23 09:00 03/01/23 08:19 Allopurinol 300 Mg Tablet PO 300 mg DAILY CASEY Administration Aspirin 81 mg 02/28/23 21:00 02/28/23 20:29 Aspirin 81 Mg Enteric Tablet PO 81 mg HS CASEY Administration Atorvastatin Calcium 10 mg 03/01/23 09:00 03/01/23 08:22 Atorvastatin 10 Mg Tablet PO 10 mg DAILY CASEY Administration Celecoxib 200 mg 03/01/23 09:00 03/01/23 08:22 Celecoxib 200 Mg Capsule PO 200 mg DAILY CASEY Administration Dextrose 12.5 gm 02/28/23 15:31 Dextrose 50% 25 Gm/50 Ml Syringe IV PUSH PRN PRN Hypoglycemia Protocol Ergocalciferol 50,000 units 02/28/23 21:00 02/28/23 20:29 Ergocalciferol 50,000 Units Capsule PO 50,000 units Th@2100 CASEY Administration Furosemide 40 mg 03/01/23 09:00 03/01/23 08:22 Furosemide 40 Mg Tablet BY MOUTH 40 mg QAM CASEY Administration Glipizide 5 mg 03/01/23 09:00 03/01/23 08:21 Glipizide 5 Mg Tablet PO 5 mg DAILY CASEY Administration Glucagon 1 mg 02/28/23 15:31 Glucagon For Inj 1 Mg Vial IM PRN PRN Hypoglycemia Protocol Glucose 15 gm 02/28/23 15:31 Glucose Oral Gel 15 Gm Of Glucse In 37.5 Gm Tube PO PRN PRN Hypoglycemia Protocol Dextrose 1,000 mls @ 100 mls/hr 02/28/23 15:31 Dextrose 5% 1,000 Ml IVPB PRN PRN Hypoglycemia Protocol Insulin Aspart 2 - 5 units 02/28/23 17:00 03/01/23 13:16 Insulin Aspart (*Bkc) 100 Units/Ml SUB-Q 2 units TIDWM CASEY Administration Protocol Insulin Aspart 1 - 2 units 02/28/23 21:00 02/28/23 20:30 Insulin Aspart (*Bkc) 100 Units/Ml SUB-Q Not Given HS CASEY Protocol Levothyroxine Sodium 88 mcg 03/01/23 06:30 03/01/23 05:41 Levothyroxine Sodium 88 Mcg Tablet BY MOUTH 88 mcg DAILY@0630 CASEY Administration Magnesium Oxide 400 mg 02/28/23 21:00 02/28/23 20:29 Magnesium Oxide 400 Mg Tablet PO 400 mg HS CASEY Administration Metformin HCl 1,000 mg 02/28/23 17:00 03/01/23 08:21 Metformin Hcl Xr 500 Mg Tab.Sr.24h PO 1,000 mg BID CASEY Administration Metop
== END 2023-03-01 17:10 | disposition home or self-care (01) ==
LOC: ANHSURGERY 10:20 → ANH3MEDSUR 11:52
PROVIDERS: Nurse Practitioner; PCP Internal Medicine; Visit Provider Orthopaedic Surgery
PROC: (CPT 23472; principal; 2023-02-28 07:30)
DX: M75.102 Unspecified rotator cuff tear or rupture of left shoulder, not specified as traumatic (principal); M19.012 Primary osteoarthritis, left shoulder; G89.18 Other acute postprocedural pain; E11.9 Type 2 diabetes mellitus without complications; G25.81 Restless legs syndrome; M10.9 Gout, unspecified; F41.9 Anxiety disorder, unspecified; E03.9 Hypothyroidism, unspecified; G47.33 Obstructive sleep apnea (adult) (pediatric); E78.5 Hyperlipidemia, unspecified; I10 Essential (primary) hypertension; I48.0 Paroxysmal atrial fibrillation; Z79.82 Long term (current) use of aspirin; Z79.84 Long term (current) use of oral hypoglycemic drugs; E66.9 Obesity, unspecified; Z68.38 Body mass index [BMI] 38.0-38.9, adult
CPT/HCPCS: 23472; 64415; 36415; 73030; 80048; 82948; 83036; 85025; 86850; 86900; 86901; 97110; 97116; 97161; 97165; 97530; 97535; A4565; A9270; C1776; J0171; J0690; J1200; J1815; J1885; J2250; J2270; J2405; J2704; J2795; J3010; J3370; J7030; J7120

== ENCOUNTER → 2024-09-29 16:05 | Outpatient (CLI) | payer MEDICARE, SELFPAY ==
--- NOTE | ~2024-09-29 | XR_ITS ---
XR shoulder RT min 2V 09/29/2024 16:25 Indication: Right shoulder pain Procedure: 4 views right shoulder Comparison: 10/22/2019 Findings: There is a right shoulder arthroplasty in an expected position. Mild degenerative change of the acromioclavicular joint. No significant soft tissue abnormality. No foreign bodies. No fracture or traumatic malalignment. Impression: 1: No acute bone or joint abnormality. Reviewed, dictated and finalized at location B. [employer] Impression: 1: No acute bone or joint abnormality.
== END ==
LOC: EXPBRAD 16:07
PROVIDERS: PCP Orthopaedic Surgery; Visit Provider Orthopaedic Surgery
DX: M25.511 Pain in right shoulder (principal); Z96.611 Presence of right artificial shoulder joint
CPT/HCPCS: 73030

== ENCOUNTER 2024-09-30 11:27 | Outpatient (CLI) | payer MEDICARE, SELFPAY ==
[2024-09-30 12:06] LABS: CRP < 0.5 mg/dL (<1.0)
[2024-09-30 12:14] LABS: Appearance Synovial Fluid Turbid (Clear); Color Synovial Fluid Red (Colorless); Nucleated Cell Synovial Fluid 441 /uL (0-200); RBC Synovial Fluid 39000 /uL (0-0); Source Synovial Fluid Lt Shoulder Syn Flui
[2024-09-30 12:29] LABS: Erythrocyte Sedimentation Rate 14 mm/hr (0-20)
[2024-09-30 12:38] LABS: Lymphocytes Synovial Fluid 92 %; Monocytes Synovial Fluid 4 %; Neutrophils Synovial Fluid 4 % (0-25)
== END 2024-09-30 11:28 | disposition home or self-care (01) ==
PROVIDERS: PCP Internal Medicine; Visit Provider Orthopaedic Surgery
DX: T84.098A Other mechanical complication of other internal joint prosthesis, initial encounter (principal); Z96.619 Presence of unspecified artificial shoulder joint
CPT/HCPCS: 36415; 85652; 86140; 87070; 87075; 87205; 89051